=== PATIENT | male | born 1990 | race Caucasian/White ===

== ENCOUNTER 2018-08-17 19:43 | Emergency (ER) | payer OTHER ==
[2018-08-17 19:58] VITALS: BP 129/81
--- NOTE | 2018-08-17 21:10 | ED ---
Lower Extremity - HPI Summary HPI Summary: 27 year-old male presents with left foot injury today. He states he dropped three wine bottles on his Metatarsal. He states that he has a small abrasion to his second metatarsal. No numbness or tingling. Has full range of motion with pain. No previous fracture to the area. He states he is able to ambulate with pain. - History of Current Complaint Chief Complaint: EDExtremityLower Stated Complaint: LT FOOT INJURY Time Seen by Provider: 08/17/18 20:27 Pain Intensity: 4 - Allergies/Home Medications Allergies/Adverse Reactions: Allergies Allergy/AdvReac Type Severity Reaction Status Date / Time No Known Allergies Allergy Verified 08/17/18 19:57 PMH/Surg Hx/FS Hx/Imm Hx Endocrine/Hematology History: Denies: Hx Anticoagulant Therapy Respiratory History: Denies: Hx Asthma Infectious Disease History: No Infectious Disease History: Denies: Traveled Outside the [place] in Last 30 Days - Family History Known Family History: Negative: Diabetes - Social History Alcohol Use: Weekly Substance Use Type: Reports: None Smoking Status (MU): Former Smoker Review of Systems Negative: Fever Negative: Chest Pain Negative: Shortness Of Breath Positive: Myalgia - left foot pain All Other Systems Reviewed And Are Negative: Yes Physical Exam Triage Information Reviewed: Yes Vital Signs On Initial Exam: Initial Vitals Temp Pulse Resp BP Pulse Ox 98 F 84 18 129/81 96 08/17/18 19:56 08/17/18 19:56 08/17/18 19:56 08/17/18 19:56 08/17/18 19:56 Vital Signs Reviewed: Yes Appearance: Positive: Well-Appearing Skin: Positive: Warm, Dry, Other - abrasion to left second toe at distal phalanx Head/Face: Positive: Normal Head/Face Inspection Eyes: Positive: Normal, Conjunctiva Clear ENT: Positive: Pharynx normal Respiratory/Lung Sounds: Positive: Clear to Auscultation, Breath Sounds Present Cardiovascular: Positive: Normal, RRR Musculoskeletal: Positive: Strength/ROM Intact, Other - tenderness 2-3th distal phalanx, capillary refill<2 secs, ecchymosis to great toe nail Neurological: Positive: Normal Psychiatric: Positive: Normal Diagnostics - Vital Signs Vital Signs Temp Pulse Resp BP Pulse Ox 08/17/18 19:56 98 F 84 18 129/81 96 - Laboratory Lab Statement: Any lab studies that have been ordered have been reviewed, and results considered in the medical decision making process. - Radiology foot Xray Interpretation: No Acute Changes Radiology Interpretation Completed By: ED Physician Lower Extremity Course/Dx - Course Course Of Treatment: 27 year-old male presents with left foot injury today. He states he dropped three wine bottles on his Metatarsal. He states that he has a small abrasion to his second metatarsal. No numbness or tingling. Has full range of motion with pain. No previous fracture to the area. He states he is able to ambulate with pain. On exam has ecchymosis noted to the distal phalanx of this second Toe. Tenderness over this area. Neurovascular intact. X-ray could be possible tuft fracture. jermaine taped. Gave postop shoe. Told to treat with RICE. Patient understands and agrees with plan. - Diagnoses Differential Diagnosis/HQI/PQRI: Positive: Fracture (Closed), Sprain, Strain Provider Diagnoses: Injury of left foot Discharge - Sign-Out/Discharge Documenting (check all that apply): Patient Departure - Discharge Plan Condition: Good Disposition: HOME Patient Education Materials: Foot Contusion (ED) Referrals: No Primary Care Phys,NOPCP [Primary Care Provider] - Additional Instructions: Wear hard sole shoes Ice, elevate jermaine tapped toes Take Tylenol or ibuprofen for pain every 6 hours as needed Follow up with chad if no improvement Return to ED if develop or any new or worsening symptoms - Billing Disposition and Condition Condition: GOOD Disposition: Home
--- NOTE | 2018-08-18 07:47 | RAD ---
HISTORY: left foot pain COMPARISONS: None VIEWS: 3 , Frontal, lateral, and oblique views of the left foot FINDINGS: BONE DENSITY: Normal. BONES: There is no displaced fracture. JOINTS: There is no arthropathy. ALIGNMENT: There is no dislocation. SOFT TISSUES: Unremarkable. OTHER FINDINGS: None. IMPRESSION: NO ACUTE OSSEOUS INJURY. IF SYMPTOMS PERSIST, RECOMMEND REPEAT IMAGING. R0
== END 2018-08-17 21:22 | disposition home or self-care (01) ==
LOC: ED 19:43
DX: S99.922A Unspecified injury of left foot, initial encounter (principal); W22.8XXA Striking against or struck by other objects, initial encounter; Y92.9 Unspecified place or not applicable; Z87.891 Personal history of nicotine dependence
CPT/HCPCS: 99282